=== PATIENT | female | born 1965 | race Caucasian/White ===

== ENCOUNTER → 2018-06-10 | Outpatient (CLI) | payer BC ==
--- NOTE | 2018-06-13 12:21 | PCVCIMAG ---
APPROVED REPORT Study performed: 06/10/2018 15:52:42 EXAM: Comprehensive 2D, Doppler, and color-flow Echocardiogram Patient Location: Echo lab Room #: 2Status: routine BSA: 1.87 HR: 93 bpmBP: 126/ mmHg Rhythm: NSR Other Information Study Quality: Good Risk Factors: Cardiac Risk Factors: Smoking, FHX of CAD Indications Aortic Valve Disease CAD 2D Dimensions IVSd: 9.45 (7-11mm)LVOT Diam: 19.91 (18-24mm) LVDd: 43.19 mm PWd: 9.59 (7-11mm)Ascending Ao: 30.55 (22-36mm) LVDs: 26.99 (25-40mm) Left Atrium: 29.89 (27-40mm) Aortic Root: 23.01 mm LV Single Plane 4CH: 65.01 % LV Single Plane 2CH: 53.07 % Biplane EF: 59.5 % Volumes Left Atrial Volume (Systole) Single Plane 4CH: 57.29 mLSingle Plane 2CH: 56.84 mL Biplane LA Volume: 60.00 mLLA ESV Index: 32.00 mL/m2 Aortic Valve AoV Peak Jeet.: 3.51 m/s AO Peak Gr.: 48.93 mmHgLVOT Max P.25 mmHg AO Mean Gr.: 28.95 mmHgLVOT Mean P.66 mmHg AO V2 Mean: 2.58 m/sLVOT Max V: 0.90 m/s AO V2 VTI: 67.07 cmLVOT Mean V: 0.63 m/s RAIZA (VTI): 1.15 [id number] V1 VTI: 24.86 cm RAIZA Vmax: 0.80 cm2 SV (LVOT): 77.39 mL Mitral Valve MV Peak Gr.: 4.48 mmHg MV Mean Gr.: 2.06 mmHgE/A Ratio: 0.8 MV Decel. Time: 118.05 ms MV E Max Jeet.: 0.71 m/s MV A Jeet.: 0.89 m/s MV Max Jeet.: 1.06 m/s MV Mean Jeet.: 0.68 m/s MV VTI: 185.31 mm MVA VTI: 417.65 mm2 IVRT: 79.58 ms TDI E/Lateral E': 7.89E/Medial E': 11.83 Medial E' Jeet.: 0.06 m/s Lateral E' Jeet.: 0.09 m/s Pulmonary Valve PV Peak Jeet.: 0.95 m/sPV Peak Gr.: 3.62 mmHg Pulmonary Vein P Vein S: 0.68 m/sP Vein A: 0.40 m/s P Vein D: 0.38 m/sP Vein A Dur.: 69.2 msec P Vein S/D Ratio: 1.79 Tricuspid Valve TR Peak Jeet.: 2.51 m/s TR Peak Gr.: 25.24 mmHg TV Vmax: 0.71 m/sPA Pressure: 32.00 mmHg Left Ventricle The left ventricle is normal size. There is normal LV segmental wall motion. There is normal left ventricular wall thickness. Left ventricular systolic function is normal. The left ventricular ejection fraction is within the normal range. LVEF is 60%. Grade I - abnormal relaxation pattern. Right Ventricle The right ventricle is normal size. The right ventricular systolic function is normal. Atria The left atrium size is normal. The right atrium size is normal. Aortic Valve Severe aortic valve sclerosis. Aortic valve is possibly bicuspid. No aortic regurgitation is present. Severe aortic stenosis. Highest mean aortic valve gradient is 29_mmHg. Peak aortic valve gradient is 49.3_mmHg. Calculated RAIZA by the continuity equation is 0.8 cm2. Mitral Valve The mitral valve is normal in structure. There is no mitral valve regurgitation noted. No evidence of mitral valve stenosis. Tricuspid Valve The tricuspid valve is normal in structure. Trace tricuspid regurgitation. Mild pulmonary hypertension. Pulmonic Valve The pulmonary valve is normal in structure. There is no pulmonic valvular regurgitation. Great Vessels The aortic root is normal in size. The ascending aorta is normal in size. Aortic arch is normal in caliber. IVC is normal in size and collapses >50% with inspiration. Pericardium There is no pericardial effusion. There is no pleural effusion. <Conclusion> The left ventricle is normal size. LVEF is 60%. Severe aortic valve sclerosis. Aortic valve is possibly bicuspid. No aortic regurgitation is present. Severe aortic stenosis. Highest mean aortic valve gradient is 29_mmHg. Peak aortic valve gradient is 49.3_mmHg. Calculated RAIZA by the continuity equation is 0.8 cm2. The mitral valve is normal in structure. The tricuspid valve is normal in structure. Trace tricuspid regurgitation. Mild pulmonary hypertension.
== END | disposition home or self-care (01) ==
LOC: PCVCIMAG 16:04
PROVIDERS: ATTEND Internal Medicine
DX: I35.0 Nonrheumatic aortic (valve) stenosis (principal); I25.10 Atherosclerotic heart disease of native coronary artery without angina pectoris; I27.20 Pulmonary hypertension, unspecified
CPT/HCPCS: 93306